=== PATIENT | male | born 1980 | race Caucasian/White ===

== ENCOUNTER 2016-11-09 17:18 | Emergency (ER) | payer OTHER ==
[~2016-11-09] VITALS: Ht 172.7 cm; Wt 119.6 kg
[~2016-11-09 17:18] MED LIST: FLOXIN OTIC SOLN5 ML RIGHT EAR; NOHOMEMEDS
[2016-11-09 17:44] LABS: HEMATOCRIT 45.5 % (38.0-50.0); MCH 28.2 PG (29.0-34.0); MCHC 33.2 G/DL (30.0-36.0); MEAN PLAT.VOLUME 10.1 uM^3 (9.0-12.4); PLATELET COUNT 316 K/uL (156-360); RBC DIS.WIDTH-CV 13.4 % (11.8-14.6); RBC DIS.WIDTH-SD 41.1 % (39-53); RED BLOOD COUNT 5.35 M/uL (4.00-5.50); WHITE BLOOD COUNT 10.2 K/uL (4.1-10.2)
[2016-11-09 17:53] LABS: CHLORIDE 104 mEq/L (99-109); POTASSIUM 3.8 mEq/L (3.7-5.4); SODIUM 142 mEq/L (136-147)
[2016-11-09 17:55] LABS: GLUCOSE 115 mg/dL (70-99)
[2016-11-09 17:56] LABS: ANION GAP 10 MEQ/L (2-14)
[2016-11-09 17:58] LABS: GFR ESTIMATE (CALCULATED) > 59 mL/min/
[2016-11-09 17:59] LABS: UREA NITROGEN (BUN) 11 mg/dL (9-23)
[2016-11-09 18:05] LABS: TROP-I INTERPRETATION NEGATIVE; TROPONIN-I < 0.01 ng/mL (0.0-0.30)
[2016-11-09 19:40] LABS: D-DIMER ELISA 0.47 mg/L FEU (< 0.57)
[2016-11-09 20:15] VITALS: BP 122/78
== END 2016-11-09 20:15 | disposition home or self-care (01) ==
LOC: EME 17:18
DX: R07.9 Chest pain, unspecified (principal); Z87.891 Personal history of nicotine dependence
CPT/HCPCS: 71020; 80048; 84484; 85027; 85379; 93005; 99281; 99283

== ENCOUNTER 2017-05-02 20:13 | Emergency (ER) | payer OTHER ==
[~2017-05-02] VITALS: Ht 175.3 cm; Wt 134.1 kg
[2017-05-02 20:16] VITALS: BP 131/89
[2017-05-02] MEDS ORDERED: NORCO 5/3251 TABLET PO (20:33)
[2017-05-02] MEDS ORDERED: FLEXERIL10 MG PO (20:33)
[2017-05-02] MEDS ORDERED: MEDROL DOSEPAK4 MG PO (20:33)
== END 2017-05-02 20:46 | disposition home or self-care (01) ==
LOC: EME 20:13
DX: M54.5 Low back pain (principal); M79.605 Pain in left leg; Z87.891 Personal history of nicotine dependence
CPT/HCPCS: 99281; 99284; J7512

== ENCOUNTER 2017-12-10 12:57 | Emergency (ER) | payer OTHER ==
[~2017-12-10] VITALS: Ht 172.7 cm; Wt 140.0 kg
[~2017-12-10 12:57] MED LIST changes: +FLEXERIL10 MG PO; +MEDROL DOSEPAK4 MG PO; +NORCO 5/3251 TABLET PO
[2017-12-10 13:36] LABS: HEMATOCRIT 41.8 % (38.0-50.0); HEMOGLOBIN 14.7 G/DL (12.5-16.6); MCH 29.9 PG (29.0-34.0); MCHC 35.2 G/DL (30.0-36.0); PLATELET COUNT 267 K/uL (156-360); RBC DIS.WIDTH-SD 40.1 % (39-53); RED BLOOD COUNT 4.92 M/uL (4.00-5.50); WHITE BLOOD COUNT 9.9 K/uL (4.1-10.2)
[2017-12-10 13:44] LABS: ALBUMIN 3.7 g/dL (3.2-4.8); CHLORIDE 105 mEq/L (99-109); POTASSIUM 4.1 mEq/L (3.7-5.4); SODIUM 141 mEq/L (136-147)
[2017-12-10 13:46] LABS: GLUCOSE 112 mg/dL (70-99); TOTAL PROTEIN 7.1 g/dL (6.4-8.3)
[2017-12-10 13:48] LABS: TOTAL BILIRUBIN 0.3 mg/dL (0.0-1.0)
[2017-12-10 13:50] LABS: ALKALINE PHOSPHATASE 83 IU/L (3-129); CREATININE 0.8 mg/dL (0.6-1.3); GFR ESTIMATE (CALCULATED) > 59 mL/min/ (58.99-99999)
[2017-12-10 13:51] LABS: UREA NITROGEN (BUN) 10 mg/dL (9-23)
[2017-12-10 13:52] LABS: AST (GOT) 27 IU/L (2-34)
[2017-12-10 13:53] LABS: ALT (GPT) 33 IU/L (3-49); LIPASE 20 U/L (1.0-51.0)
[2017-12-10] MEDS ORDERED: FLEXERIL10 MG PO (15:00)
[2017-12-10] MEDS ORDERED: NAPROSYN500 MG PO (15:00)
[2017-12-10 15:27] LABS: APPEARANCE CLEAR ((CLEAR)); BILIRUBIN NEGATIVE; BLOOD NEGATIVE; COLOR YELLOW ((YELLOW)); GLUCOSE (STRIP) NEGATIVE; KETONES NEGATIVE; LEUKOCYTES NEGATIVE; NITRITE NEGATIVE; PROTEIN (STRIP) NEGATIVE; UCUL ADDED? NO; UROBILINOGEN 0.2 MG/DL (0.2-1.0)
[2017-12-10 15:36] LABS: AMPHETAMINE NEGATIVE (500 ng/mL); BARBITURATES NEGATIVE (200 ng/mL); BENZODIAZEPINES NEGATIVE (150 ng/mL); BUPRENORPHINE NEGATIVE (10 ng/mL); COCAINE NEGATIVE (150 ng/mL); METHADONE NEGATIVE (200 ng/mL); METHAMPHETAMINE NEGATIVE (500 ng/mL); OPIATES (MORPHINE) NEGATIVE (100 ng/mL); OXYCODONE NEGATIVE (100 ng/mL); PHENCYCLIDINE NEGATIVE (25 ng/mL); PROPOXYPHENE NEGATIVE (300 ng/mL); THC CANNABINOIDS NEGATIVE (50 ng/mL); TRICYCLIC ANTIDEPRESSANTS NEGATIVE (300 ng/mL)
[2017-12-10 15:50] VITALS: BP 149/84
== END 2017-12-10 15:50 | disposition home or self-care (01) ==
LOC: EME 12:57
PROVIDERS: Physician Assistant
DX: S30.1XXA Contusion of abdominal wall, initial encounter (principal); S20.219A Contusion of unspecified front wall of thorax, initial encounter; S80.02XA Contusion of left knee, initial encounter; V43.53XA Car driver injured in collision with pick-up truck in traffic accident, initial encounter; Y92.410 Unspecified street and highway as the place of occurrence of the external cause; I65.22 Occlusion and stenosis of left carotid artery; R59.0 Localized enlarged lymph nodes; K44.9 Diaphragmatic hernia without obstruction or gangrene; K57.30 Diverticulosis of large intestine without perforation or abscess without bleeding; M47.896 Other spondylosis, lumbar region; M41.86 Other forms of scoliosis, lumbar region; Z87.891 Personal history of nicotine dependence; Z88.5 Allergy status to narcotic agent
CPT/HCPCS: 70450; 71260; 72125; 73564; 74177; 80053; 81003; 83690; 85027; 99281; 99285